=== PATIENT | male | born 1990 | race Caucasian/White ===

== ENCOUNTER 2018-03-18 23:26 | Emergency (ER) | payer BC ==
[~2018-03-18] VITALS: Ht 177.8 cm; Wt 99.8 kg
[2018-03-18] MEDS ORDERED: ASPIRIN 81 MG TAB.CHEW PO ONE (23:45)
[2018-03-18 23:56] LABS: BASO % 1 % (0-3); EOS # 0.6 x10^3/uL (0.0-0.7); EOS % 7 % (0-3); HEMATOCRIT 47.9 % (39.0-53.0); HEMOGLOBIN 16.6 g/dL (13.0-17.5); LYMPH % 51 % (24-48); MEAN CORPUSCULAR HEMOGLOBIN 33 pg (25-35); MEAN CORPUSCULAR HGB CONC 35 g/dL (31-37); MEAN CORPUSCULAR VOLUME 94 fL (79-100); MONO # 0.7 x10^3/uL (0.0-1.1); MONO % 9 % (0-9); NEUT # 2.5 x10^3uL (1.8-7.7); NEUT % 32 % (31-73); PLATELET COUNT 210 x10^3/uL (140-400); RED BLOOD COUNT 5.11 x10^6/uL (4.30-5.70); RED CELL DISTRIBUTION WIDTH 13.6 % (11.5-14.5); WHITE BLOOD COUNT 7.8 x10^3/uL (4.0-11.0)
[2018-03-19] MEDS ORDERED: ASPIRIN 81 MG TAB.CHEW PO ONE
[2018-03-19 00:06] LABS: ALBUMIN 4.2 g/dL (3.4-5.0); ALBUMIN/GLOBULIN RATIO 1.3 (1.0-1.7); CALCIUM 9.1 mg/dL (8.5-10.1); CREATININE 1.1 mg/dL (0.7-1.3); GFR 80.3; POTASSIUM 3.9 mmol/L (3.5-5.1); TOTAL BILIRUBIN 0.4 mg/dL (0.2-1.0); TOTAL PROTEIN 7.4 g/dL (6.4-8.2)
--- NOTE | 2018-03-19 00:11 | PHYS DOC ---
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 with chest pain on the left side loss for the past 2 weeks comes and goes worse when he moves his left arm today it's been constant , he describes been as a sharp constant pain that related to exertion worse when he touches the left side of his chest, no shortness of breath no palpitations no syncope no presyncope Review of Systems Review of Systems Constitutional: Denies fever or chills [] Eyes: Denies change in visual acuity, redness, or eye pain [] HENT: Denies nasal congestion or sore throat [] Respiratory: Denies cough or shortness of breath [] Cardiovascular: No additional information not addressed in HPI [] GI: Denies abdominal pain, nausea, vomiting, bloody stools or diarrhea [] : Denies dysuria or hematuria [] Musculoskeletal: Denies back pain or joint pain [] Integument: Denies rash or skin lesions [] Neurologic: Denies headache, focal weakness or sensory changes [] Endocrine: Denies polyuria or polydipsia [] All other systems were reviewed and found to be within normal limits, except as documented in this note. Current Medications Current Medications Current Medications Medications (Trade) Dose Ordered Sig/Luis Alberto Start Time Stop Time Status Last Admin Dose Admin Aspirin (Children'S Aspirin) 324 mg 1X ONCE 03/18/18 23:45 03/18/18 23:46 UNV Ketorolac Tromethamine (Toradol 30mg Vial) 30 mg 1X ONCE 03/19/18 00:15 03/19/18 00:16 UNV Allergies Allergies Allergies Coded Allergies Type Severity Reaction Last Updated Verified amoxicillin Allergy Unknown 03/18/18 Yes Physical Exam Physical Exam Constitutional: Well developed, well nourished, no acute distress, non-toxic appearance. [] HENT: Normocephalic, atraumatic, bilateral external ears normal, oropharynx moist, no oral exudates, nose normal. [] Eyes: PERRLA, EOMI, conjunctiva normal, no discharge. [] Neck: Normal range of motion, no tenderness, supple, no stridor. [] Cardiovascular:Heart rate regular rhythm, no murmur [] Lungs & Thorax: Bilateral breath sounds clear to auscultation [] Abdomen: Bowel sounds normal, soft, no tenderness, no masses, no pulsatile masses. [] Skin: Warm, dry, no erythema, no rash. [] Back: No tenderness, no CVA tenderness. [] Extremities: No tenderness, no cyanosis, no clubbing, ROM intact, no edema. [] Neurologic: Alert and oriented X 3, normal motor function, normal sensory function, no focal deficits noted. [] Psychologic: Affect normal, judgement normal, mood normal. [] Current Patient Data Vital Signs Vital Signs Date Time Temp Pulse Resp B/P (MAP) Pulse Ox O2 Delivery O2 Flow Rate FiO2 03/18/18 23:30 98.5 75 18 99 Room Air Lab Results Laboratory Tests Test 03/18/18 23:35 White Blood Count 7.8 x10^3/uL (4.0-11.0) Red Blood Count 5.11 x10^6/uL (4.30-5.70) Hemoglobin 16.6 g/dL (13.0-17.5) Hematocrit 47.9 % (39.0-53.0) Mean Corpuscular Volume 94 fL (79-100) Mean Corpuscular Hemoglobin 33 pg (25-35) Mean Corpuscular Hemoglobin Concent 35 g/dL (31-37) Red Cell Distribution Width 13.6 % (11.5-14.5) Platelet Count 210 x10^3/uL (140-400) Neutrophils (%) (Auto) 32 % (31-73) Lymphocytes (%) (Auto) 51 % (24-48) H Monocytes (%) (Auto) 9 % (0-9) Eosinophils (%) (Auto) 7 % (0-3) H Basophils (%) (Auto) 1 % (0-3) Neutrophils # (Auto) 2.5 x10^3uL (1.8-7.7) Lymphocytes # (Auto) 4.0 x10^3/uL (1.0-4.8) Monocytes # (Auto) 0.7 x10^3/uL (0.0-1.1) Eosinophils # (Auto) 0.6 x10^3/uL (0.0-0.7) Basophils # (Auto) 0.0 x10^3/uL (0.0-0.2) EKG EKG No acute ischemic changes[] Radiology/Procedures Radiology/Procedures No acute findings[] Course & Med Decision Making Course & Med Decision Making Pertinent Labs and Imaging studies reviewed. (See chart for details) [] Final Impression Final Impression [] Problems: (1) Costochondritis, acute Dragon Disclaimer Dragon Disclaimer This electronic medical record was generated, in whole or in part, using a voice recognition dictation system. ROBY ARTHUR MD Mar 19, 2018 00:11
[2018-03-19] MEDS ORDERED: KETOROLAC 30 MG/ML VIAL. IV ONE (00:30)
[2018-03-19 00:43] VITALS: BP 130/64
--- NOTE | 2018-03-19 06:01 | EKG ---
[address] [address] Test Date: 2018-03-18 Test Time: 23:38:11 Pat Name: YVETTE DEL CID Department: Room: Gender: M Supervisor Line Department: : 1990 Requested By: ROBY ARTHUR Order Number: [id number] Reading MD: Chi Dinero MD Measurements Intervals [place] Rate: 82 P: 47 [place]: 140 QRS: 59 QRSD: 74 T: 60 QT: 398 QTc: 468 Interpretive Statements SINUS RHYTHM Electronically Signed On 03-22-2018 8:46:53 CDT by Chi Dinero MD
--- NOTE | 2018-03-19 07:44 | RAD ---
Chest, 2 views, 03/18/2018: HISTORY: Chest pain The heart size is normal. The lungs are clear. There is no evidence of pleural fluid. IMPRESSION: No acute cardiopulmonary abnormality is detected. Electronically signed by: Jamir Euceda MD (03/19/2018 7:41 AM) [facility]
== END 2018-03-19 00:55 | disposition home or self-care (01) ==
LOC: ER 23:26
DX: M94.0 Chondrocostal junction syndrome [Tietze] (principal); Z88.1 Allergy status to other antibiotic agents
CPT/HCPCS: 36415; 71046; 80053; 84484; 85025; 93005; 96374; 99285; J1885

== ENCOUNTER 2019-03-21 16:34 | Emergency (ER) | payer BC ==
[~2019-03-21] VITALS: Ht 177.8 cm; Wt 102.1 kg
[2019-03-21] MEDS ORDERED: GLUCAGON,HUMAN RECOMBINANT 1 MG KIT. IV ONE (17:30)
[2019-03-21 18:46] VITALS: BP 128/84
--- NOTE | 2019-03-21 18:46 | PHYS DOC ---
Past History Past Medical History: No Pertinent History Past Surgical History: Other Additional Past Surgical Histo: GI scope Smoking: Non-smoker, Chew Alcohol Use: Occasionally Drug Use: None Adult General Chief Complaint Chief Complaint: FOREIGN BODY HPI HPI 28-year-old male presents with report of sensation of esophageal food bolus. Patient reports he was eating chicken strips at noon and felt like it got stuck. Patient has a history of prior food bolus which required GI treatment at [facility] in October 2014. Patient reports any time he drinks any water it comes right back out. Denies any bones. Review of Systems Review of Systems Constitutional: Denies fever or chills Eyes: Denies redness or eye pain HENT: Denies nasal congestion or sore throat Respiratory: Denies cough or shortness of breath Cardiovascular: Denies palpitations; reports sensation of esophageal foreign body GI: Denies abdominal pain; reports vomiting : Denies dysuria or hematuria Musculoskeletal: Denies back pain or joint pain Integument: Denies rash or skin lesions Neurologic: Denies headache, focal weakness or sensory changes Complete systems were reviewed and found to be within normal limits, except as documented in this note. Current Medications Current Medications Current Medications Medications (Trade) Dose Ordered Sig/Luis Alberto Start Time Stop Time Status Last Admin Dose Admin Glucagon (Glucagen Kit) 1 mg 1X ONCE 03/21/19 17:30 03/21/19 17:31 DC 03/21/19 17:48 1 MG Allergies Allergies Allergies Coded Allergies Type Severity Reaction Last Updated Verified amoxicillin Allergy Unknown 03/18/18 Yes Physical Exam Physical Exam Constitutional: Well developed, well nourished, no acute distress, non-toxic appearance HENT: Normocephalic, atraumatic, oropharynx moist Eyes: Conjunctiva normal, no discharge Neck: Normal range of motion, no tenderness, supple, no stridor Cardiovascular: Heart rate normal, regular rhythm Lungs & Thorax: Bilateral breath sounds clear to auscultation, no wheezing Abdomen: Soft, no tenderness Skin: Warm, dry, no erythema, no rash Extremities: No tenderness, ROM intact, no edema Neurologic: Alert and oriented X 3, no focal deficits noted Psychologic: Affect normal, judgement normal Current Patient Data Vital Signs Vital Signs Date Time Temp Pulse Resp B/P (MAP) Pulse Ox O2 Delivery O2 Flow Rate FiO2 03/21/19 17:53 87 16 119/71 (87) 99 Room Air 03/21/19 16:39 97.6 EKG EKG [] Radiology/Procedures Radiology/Procedures [] Course & Med Decision Making Course & Med Decision Making Patient presents with history of present illness and physical exam consistent for esophageal food bolus. Trialed glucagon without success. Patient requiring transfer to [facility] for GI lab evaluation and removal of food bolus. Discussed with Dr. Macias (GI), who is in agreement with transfer to [facility] for evaluation and treatment. Patient stable for transfer. Discussed findings and plan with patient and family, who acknowledge understanding and agreement. Dragon Disclaimer Dragon Disclaimer This electronic medical record was generated, in whole or in part, using a voice recognition dictation system. Departure Departure: Impression: Primary Impression: Food impaction of esophagus Disposition: TRANSFER OTHER ([facility] GI lab) Condition: STABLE Referrals: ROSIE VALDES MD (PCP) Problem Qualifiers Primary Impression: Food impaction of esophagus Encounter type: initial encounter Qualified Codes: T18.128A - Food in esophagus causing other injury, initial encounter JOSELYN CLIFTON DO Mar 21, 2019 18:46
== END 2019-03-21 19:13 | disposition short-term general hospital (02) ==
LOC: ER 16:34
DX: T18.128A Food in esophagus causing other injury, initial encounter (principal); Z88.0 Allergy status to penicillin; X58.XXXA Exposure to other specified factors, initial encounter; Y93.89 Activity, other specified; Y92.89 Other specified places as the place of occurrence of the external cause; Y99.8 Other external cause status
CPT/HCPCS: 96374; 99285; J1610; 99284